=== PATIENT | female | born 1960 | race Caucasian/White ===

== ENCOUNTER 2016-04-22 03:05 | Emergency (ER) | payer OTHER ==
[2016-04-22] MEDS ORDERED: NS 1,000 ML IV ONE (03:19)
[2016-04-22] MEDS ORDERED: MECLIZINE 25 MG TAB PO ONE (03:20)
[2016-04-22] MEDS ORDERED: ONDANSETRON HCL 4 MG/2 ML VIAL IV ONE (03:20)
[2016-04-22 03:22] VITALS: TEMP 97.8; BMI 29.1
--- NOTE | 2016-04-22 03:25 | EDPRACDOC ---
- General Information Information Source: Patient Mode Of Arrival: Car - History of Present Illness Onset: 99 Exact Onset of Symptoms: Known Date Symptoms Started: 04/22/16 Time Symptoms Started: 01:00 HPI: PT PRESENTS WITH SUDDEN ONSET OF DIZZINESS. STATES SHE WAS LAYING IN THE BED WHEN SHE BECAME EXTREMELY DIZZY WITH NAUSEA AND VOMITING. STATES SHE HAS CONTINUED TO HAVE THESE SYMPTOMS SINCE THAT TIME. STATES EARLIER IN THE EVENING SHE HAD SOME RIGHT SHOULDER PAIN WITH NO RADIATION. DENIES PMH. Symptoms Started: Reports: At Rest Symptoms Description: Constant Weakness: Bilateral: Generalized Symptoms: Reports: Imbalance Symptom Severity: Reports: Unable to performs ADL's Relevant History of: Denies: O, Anemia, CVA, DM, Electrolyte disorder, GI Bleed , PR, TIA Associated signs and symptoms:: Reports: Nausea, Vomiting <Priscilla Diaz - Last Filed: 04/22/16 04:06> <Stepan Patricia - Last Filed: 04/22/16 04:58> - General Information Chief Complaint: Neuro Symptoms/Deficits Stated Complaint: DIZZY Time Seen by Provider: 04/22/16 03:18 Home Medications: Home Medications Mometasone Furoate [Asmanex] 220 mcg INH DAILY 09/19/14 Cephalexin 500 mg PO BID 12/15/15 Fluticasone Propionate [Flonase Nasal [place]] 2 spray CHRISTINA BID 12/15/15 Amoxicillin 500 mg PO BID #20 cap 04/22/16 Diazepam [Valium] 5 mg PO TID #15 tablet 04/22/16 Meclizine HCl [Antivert] 25 mg PO Q6 PRN #20 tablet 04/22/16 Ondansetron HCl [Zofran] 4 mg PO Q6H PRN #20 tab 04/22/16 Promethazine [Phenergan] 25 mg PO Q8H PRN #30 tab 04/22/16 Allergies/Adverse Reactions: Allergies Allergy/AdvReac Type Severity Reaction Status Date / Time No Known Allergies Allergy Verified 04/22/16 03:16 ED Past Medical History - History Reviewed Yes Nurses notes reviewed and agree except as marked - Patient Medical History Respiratory History: Reports: Asthma Psychological History: Denies: Depression Surgical History: Reports: Cholecystectomy - Social Medical History Smoking Status: Never smoker <Priscilla Diaz - Last Filed: 04/22/16 04:06> EDM Review of Systems - Review of Systems ROS Negative Except as Marked: Yes All systems reviewed and were negative except as marked <Priscilla Diaz - Last Filed: 04/22/16 04:06> - Physical Exam Constitutional: Alert Oriented to: Time, Person, Place Last recorded Vital Signs: Oxygen Pulse Oxygen Saturation O2 Device Oxygen Flow Rate Fraction of Inspired Oxygen ( FIO2) - HEENT Head: Normal ( normocephalic) Eye Exam: Normal (PERRL, EOMI, Sclera white) Oropharynx: Normal (Pharynx:Moist without exudate,Gums-no swelling) Tympanic Membrane: Normal Nose: No Symptoms Reported (septum midline) Neck: Normal (FROM, trachea at midline) - Respiratory/Cardiovascular Respiratory: Normal - CTA (BBS clear to auscultation without adventitious sounds ) Cardiovascular: Normal (RRR without murmur, gallop or rub) - GI Auscultation: Normal (NABS) Palpation: Normal (Soft,No rebound or guarding, non distended) Tenderness: Non tender Gonzales's Sign: Negative Rectal Exam: Deferred - Musculoskeletal Back: Normal (Non-Tender) Extremities: Normal (Normal tone, Pulses 2+ No cyanosis or edema, FROM) - Integumentary Skin: Normal, Warm, Dry Lymphatics: Normal (no adenopathy) - Neurologic Memory Impaired: Normal Motor Function: Normal (Normal tone, Pulses 2+ No cyanosis or edema, FROM) Cranial Nerve: Normal (CN II-X11 intact sensation, strength 5/5) Cerebellar: Normal Mood Description: Normal Perception: Normal <Priscilla Diaz - Last Filed: 04/22/16 04:06> - Physical Exam Last recorded Vital Signs: Last Vital Signs Temp 97.8 F 04/22/16 03:16 Pulse 69 04/22/16 03:16 Resp 20 04/22/16 03:16 BP 147/71 04/22/16 03:16 Pulse Ox 95 04/22/16 03:16 Oxygen Pulse Oxygen Saturation 95 O2 Device Room Air Oxygen Flow Rate Fraction of Inspired Oxygen ( FIO2) <Stepan Patricia - Last Filed: 04/22/16 04:58> NIH Stroke Scale Initial Evaluation Level of Consciousness: Alert LOC- Question: Answers Both Correctly LOC Commands: Both Task Correctly Best Gaze: Normal Visual: No Visual Loss Facial Palsy: Normal Movement Motor Arm LEFT: No Drift Motor Arm RIGHT: No Drift Motor Leg LEFT: No Drift Motor Leg RIGHT: No Drift Limb Ataxia: Absent Sensory: Normal Best Language: No Aphasia Dysarthria: Normal Extinction and Inattention: No Abnormality (Neglect) Score: 0out of42 <Priscilla Diaz W - Last Filed: 04/22/16 04:06> - Neurologic Orientation: Time, Person, Place Speech: Fluent, Clear Coginitive: Normal, Follows Commands Affect: Normal, Calm Thought: Coherent Perception: Normal <Priscilla Diaz W - Last Filed: 04/22/16 04:06> - Differential Diagnosis Dehydration, Electrolyte disorder, Vertigo - Results 04/22/16 03:30 04/22/16 03:30 - EKG EKG #1 EKG Time: 03:28 -: Yes EKG interpreted by me Rate: bpm: [address] [place]: Normal Rhythm: NSR Block: 1, AVB Hypertrophy: None ST: Normal <Enoc Diazrina W - Last Filed: 04/22/16 04:06> - Results 04/22/16 03:30 04/22/16 03:30 WBC 5.4 xk/uL (3.8-10.8) 04/22/16 03:30 RBC 4.79 xM/uL (4.20-5.40) 04/22/16 03:30 Hgb 13.9 g/dL (12.0-16.0) 04/22/16 03:30 Hct 42.2 % (36-47) 04/22/16 03:30 MCV 88 fL (81-99) 04/22/16 03:30 MCH 29.1 pg (27-32) 04/22/16 03:30 MCHC 33.0 g/dl (33-36) 04/22/16 03:30 RDW 13.8 % (11.5-14.5) 04/22/16 03:30 Plt Count 196 xk/uL (130-400) 04/22/16 03:30 MPV 8.1 fL (7.4-10.4) 04/22/16 03:30 Neut % (Auto) 47.4 % (45-76) 04/22/16 03:30 Lymph % (Auto) 39.2 % (17-44) 04/22/16 03:30 Castro % (Auto) 8.5 % (3-10) 04/22/16 03:30 Eos % (Auto) 4.7 % (0-5) 04/22/16 03:30 Baso % (Auto) 0.2 % (0-2) 04/22/16 03:30 Absolute Neuts (auto) 2.54 xk/uL (1.7-8.2) 04/22/16 03:30 Absolute Lymphs (auto) 2.11 xk/uL (0.65-4.75) 04/22/16 03:30 PT 9.9 SEC (9.2-11.2) 04/22/16 03:30 INR 1.0 04/22/16 03:30 APTT 22.2 SEC (22-35) 04/22/16 03:30 Sodium 139 mEq/L (137-146) 04/22/16 03:30 Potassium 3.7 mEq/L (3.5-5.1) 04/22/16 03:30 Chloride 104 mEq/L (98-107) 04/22/16 03:30 Carbon Dioxide 28 mMOL/L (22-33) 04/22/16 03:30 Anion Gap 11 mEq/L (8-16) 04/22/16 03:30 BUN 17 MG/DL (7-17) 04/22/16 03:30 Creatinine 0.60 MG/DL (0.52-1.04) 04/22/16 03:30 Estimated GFR (MDRD) > 60 mL/min (>=60) 04/22/16 03:30 Glucose 133 mg/dL (70-99) H 04/22/16 03:30 Calculated Osmolality 272 MOs/Kg (270-290) 04/22/16 03:30 Calcium 9.1 MG/DL (8.4-10.2) 04/22/16 03:30 Total Bilirubin 0.4 MG/DL (0.2-1.3) 04/22/16 03:30 AST 23 IU/L (14-36) 04/22/16 03:30 ALT 39 IU/L (9-52) 04/22/16 03:30 Alkaline Phosphatase 69 IU/L (38-126) 04/22/16 03:30 Creatine Kinase 59 IU/L (30-134) 04/22/16 03:30 Troponin I < 0.01 ng/mL (<.04) 04/22/16 03:30 Hjg-I-Yiqxqavlwmy Pept 48 pg/mL (0-900) 04/22/16 03:30 Total Protein 6.7 G/DL (6.3-8.2) 04/22/16 03:30 Albumin 4.1 G/DL (3.5-5.0) 04/22/16 03:30 Urine Color Yellow 04/22/16 04:10 Urine Clarity Sl cldy 04/22/16 04:10 Urine pH 7.0 (5.0-8.0) 04/22/16 04:10 Ur Specific [place] 1.010 (1.003-1.035) 04/22/16 04:10 Urine Protein Neg (NEG/TRACE) 04/22/16 04:10 Urine Glucose (UA) Neg (NEGATIVE) 04/22/16 04:10 Urine Ketones Neg (NEGATIVE) 04/22/16 04:10 Urine Occult Blood Neg (NEG/TRACE) 04/22/16 04:10 Urine Nitrite Neg (NEGATIVE) 04/22/16 04:10 Urine Bilirubin Neg (NEGATIVE) 04/22/16 04:10 Urine Urobilinogen <2.0 MG/DL (0-1) 04/22/16 04:10 Ur Leukocyte Esterase Neg (NEGATIVE) 04/22/16 04:10 Urine RBC 0-2 (0-5) 04/22/16 04:10 Urine WBC 2-5 (0-5) 04/22/16 04:10 Ur Epithelial Cells 2+ 04/22/16 04:10 Urine Bacteria Few (NEG/FEW) 04/22/16 04:10 Urine Mucus Occ (NEG/OCC) 04/22/16 04:10 Lab Results 04/22/16 04/22/16 04/22/16 04:10 03:30 03:30 WBC 5.4 RBC 4.79 Hgb 13.9 Hct 42.2 MCV 88 MCH 29.1 MCHC 33.0 RDW 13.8 Plt Count 196 MPV 8.1 Neut % (Auto) 47.4 Lymph % (Auto) 39.2 Castro % (Auto) 8.5 Eos % (Auto) 4.7 Baso % (Auto) 0.2 Absolute Neuts (auto) 2.54 Absolute Lymphs (auto) 2.11 PT 9.9 INR 1.0 APTT 22.2 Sodium Potassium Chloride Carbon Dioxide Anion Gap BUN Creatinine Estimated GFR (MDRD) Glucose Calculated Osmolality Calcium Total Bilirubin AST ALT Alkaline Phosphatase Creatine Kinase Troponin I [id number]-Xibfnruznaq Pept Total Protein Albumin Urine Color Yellow Urine Clarity Sl cldy Urine pH 7.0 Ur Specific [place] 1.010 Urine Protein Neg Urine Glucose (UA) Neg Urine Ketones Neg Urine Occult Blood Neg Urine Nitrite Neg Urine Bilirubin Neg Urine Urobilinogen <2.0 Ur Leukocyte Esterase Neg Urine RBC 0-2 Urine WBC 2-5 Ur Epithelial Cells 2+ Urine Bacteria Few Urine Mucus Occ 04/22/16 03:30 WBC RBC Hgb Hct MCV MCH MCHC RDW Plt Count MPV Neut % (Auto) Lymph % (Auto) [place] % (Auto) Eos % (Auto) Baso % (Auto) Absolute Neuts (auto) Absolute Lymphs (auto) PT INR APTT Sodium 139 Potassium 3.7 Chloride 104 Carbon Dioxide 28 Anion Gap 11 BUN 17 Creatinine 0.60 Estimated GFR (MDRD) > 60 Glucose 133 H Calculated Osmolality 272 Calcium 9.1 Total Bilirubin 0.4 AST 23 ALT 39 Alkaline Phosphatase 69 Creatine Kinase 59 Troponin I < 0.01 Eth-L-Sqhjpgkgurt Pept 48 Total Protein 6.7 Albumin 4.1 Urine Color Urine Clarity Urine pH Ur Specific [place] Urine Protein Urine Glucose (UA) Urine Ketones Urine Occult Blood Urine Nitrite Urine Bilirubin Urine Urobilinogen Ur Leukocyte Esterase Urine RBC Urine WBC Ur Epithelial Cells Urine Bacteria Urine Mucus <Stepan Patricia - Last Filed: 04/22/16 04:58> - Departure Disposition: Home Education/Counseling Given To: Patient Education/Counseling Given Regarding: Diagnosis, Treatment, Prognosis, Follow Up <Priscilla Diaz - Last Filed: 04/22/16 04:06> Decision Time to Discharge: 04:57 - Departure Yes I personally saw and evaluated the patient. <Stepan Patricia - Last Filed: 04/22/16 04:58> - Departure Condition: Stable Final Diagnosis: Vertigo, SOFT TISSUE DENSITY RIGHT MIDDLE EAR Instructions: Vertigo (ED) Referrals: Coco Harris NP [Primary Care Provider] - One Week Taras Moore MD [Staff Physician] - One Week Prescriptions: New Diazepam [Valium] 5 mg PO TID #15 tablet Meclizine HCl [Antivert] 25 mg PO Q6 PRN #20 tablet PRN Reason: Dizziness Amoxicillin 500 mg PO BID #20 cap Promethazine [Phenergan] 25 mg PO Q8H PRN #30 tab PRN Reason: Nausea/Vomiting Changed Ondansetron HCl [Zofran] 4 mg PO Q6H PRN #20 tab PRN Reason: Nausea/Vomiting Discontinued Sulfamethoxazole/Trimethoprim [Bactrim Ds Tablet] 1 tab PO BID Clindamycin [Cleocin] 300 mg PO TID #21 cap No Action Mometasone Furoate [Asmanex] 220 mcg INH DAILY Cephalexin 500 mg PO BID Fluticasone Propionate [Flonase Nasal [place]] 2 spray CHRISTINA BID Additional Instructions: FOLLOW UP WITH PCP NEXT WEEK. RETURN TO THE ED FOR WORSENING SYMPTOMS OR CONCERNS. CHANGE POSITIONS SLOWLY.
[2016-04-22 03:48] LABS: AUTOMATED BASOPHIL 0.2 % (0-2); AUTOMATED EOSINOPHIL 4.7 % (0-5); AUTOMATED LYMPH 39.2 % (17-44); AUTOMATED MONOCYTE 8.5 % (3-10); AUTOMATED NEUTROPHIL 47.4 % (45-76); MPV 8.1 fL (7.4-10.4)
[2016-04-22 03:56] LABS: BLOOD UREA NITROGEN 17 MG/DL (7-17); CALCIUM 9.1 MG/DL (8.4-10.2); CALCULATED OSMOLALITY 272 MOs/Kg (270-290); CHLORIDE 104 mEq/L (98-107); CPK TOTAL WITH POSSIBLE MB 59 IU/L (30-134); GLUCOSE 133 mg/dL (70-99); SODIUM LEVEL 139 mEq/L (137-146); TOTAL PROTEIN 6.7 G/DL (6.3-8.2)
[2016-04-22 03:59] LABS: PARTIAL THROMB. TIME 22.2 SEC (22-35)
[2016-04-22] MEDS ORDERED: DIAZEPAM 5 MG TAB PO ONE (04:06)
--- NOTE | 2016-04-22 04:07 | DIRPT ---
CLINICAL DATA: Dizziness. Nausea and vomiting. EXAM: CHEST 2 VIEW COMPARISON: 12/15/2015 FINDINGS: The cardiomediastinal contours are normal. The lungs are clear. Pulmonary vasculature is normal. No consolidation, pleural effusion, or pneumothorax. No acute osseous abnormalities are seen. IMPRESSION: No acute pulmonary process. Electronically Signed By: Tahira Hunt M.D. On: 04/22/2016 04:04
[2016-04-22 04:27] LABS: LEUKOCYTES/URINE NEG (NEGATIVE); NITRITE/URINE NEG (NEGATIVE); RBC/URINE 0-2 (0-5); URINE OCCULT BLOOD NEG (NEG/TRACE)
--- NOTE | 2016-04-22 04:27 | DIRPT ---
CLINICAL DATA: Dizziness and vertigo beginning at 1 a.m. EXAM: CT HEAD WITHOUT CONTRAST TECHNIQUE: Contiguous axial images were obtained from the base of the skull through the vertex without intravenous contrast. COMPARISON: None. FINDINGS: The ventricles and sulci are normal. No intraparenchymal hemorrhage, mass effect nor midline shift. No acute large vascular territory infarcts. No abnormal extra-axial fluid collections. Basal cisterns are patent. Mild calcific atherosclerosis of the carotid siphons. No skull fracture. The included ocular globes and orbital contents are non-suspicious. LEFT maxillary mucosal retention cyst. Mastoid air cells are well aerated. Subcentimeter abnormal soft tissue within the fundus the RIGHT external auditory canal versus middle ear. IMPRESSION: Negative CT head. Abnormal soft tissue in fundus of RIGHT external auditory canal versus middle ear, recommend direct inspection. Electronically Signed By: Cecilia Nieves M.D. On: 04/22/2016 04:24
[2016-04-22] MEDS ORDERED: AMOXICILLIN 500 MG CAP PO ONE (04:59)
[2016-04-22 05:17] VITALS: BP 128/65; PULSE 70
== END 2016-04-22 05:15 | disposition home or self-care (01) ==
LOC: ED 03:05
DX: R42 Dizziness and giddiness (principal)
CPT/HCPCS: 36415; 70450; 71020; 80053; 81001; 82550; 83880; 84484; 85025; 85610; 85730; 93005; 96361; 96374; 99284; J2405; J3490